=== PATIENT | male | born 1945 | race Caucasian/White ===

== ENCOUNTER 2016-12-23 13:20 | Inpatient (IN) | payer MEDICARE ==
[~2016-12-23] VITALS: Ht 180.3 cm; Wt 98.4 kg
[2016-12-26] MEDS ORDERED: ATEN25TA PO (09:21)
[2016-12-26] MEDS ORDERED: LISI10TA3 PO (09:22)
[2016-12-26] MEDS ORDERED: TAMS5CAP PO (09:23)
[2016-12-26] MEDS ORDERED: NEXI40CA PO (12:15)
[2017-03-14] MEDS ORDERED: ISOS30TA3 PO (12:18)
[2017-03-14] MEDS ORDERED: AMLO5TAB2 PO (12:18)
[2017-03-15] MEDS ORDERED: INSULIN HUMAN REGULAR 1,000 UNITS/10 ML VIAL SQ PRN (07:45)
[2017-03-15] MEDS ORDERED: DEXAMETHASONE SOD PHOS 20 MG/5 ML VIAL IV SCH (07:45)
[2017-03-15] MEDS ORDERED: LACTATED RINGER'S 1000 ML IV PRN (07:45)
[2017-03-15] MEDS ORDERED: TRANEXAMIC ACID INJ 994 MG in SODIUM CHLORIDE 0.9% INJ 100 ML IV SCH ×2 (07:45→14:00)
[2017-03-15] MEDS ORDERED: POVIDONE IODINE 7.5% SCRUB 118 ML BOTTLE TOPICAL SCH (07:45)
[2017-03-15] MEDS ORDERED: CHLORHEXIDINE GLUCONATE 2 % 1 PACK (2 CLOTHS) TOPICAL PRN (07:45)
[2017-03-15] MEDS ORDERED: POVIDONE IODINE 5% (ANTISEPSIS KIT) 4 APPLICATIONS EACH NARE PRN (07:45)
[2017-03-15] MEDS ORDERED: EXPAREL PERI-ARTICULAR INJECTION (TOTAL VOL. 60 ML) P-ARTICULR SCH ×2 (07:45)
[2017-03-15] MEDS ORDERED: METOPROLOL TARTRATE 25 MG TAB PO PRN (07:45)
[2017-03-15] MEDS ORDERED: SODIUM CHLORID 0.9% 500 ML IV PRN (07:45)
[2017-03-15] MEDS ORDERED: ceFAZolin 2 GM PREMIX 50 ML IV SCH (07:45)
[2017-03-15] MEDS ORDERED: VANCOMYCIN 1000 MG/NS 250 ML (for <70 kg) IV SCH ×2 (07:45)
[2017-03-15] MEDS ORDERED: MIDAZOLAM HCL 2 MG/2 ML VIAL ONE (09:41)
[2017-03-15] MEDS ORDERED: FAMOTIDINE 20 MG/2 ML VIAL ONE (09:41)
[2017-03-15] MEDS ORDERED: GENTAMICIN SULFATE 80 MG/2 ML VIAL ONE (11:12)
--- NOTE | 2017-03-15 11:41 | RADRPT ---
EXAM DATE/TIME: 03/15/2017 10:11 [facility] COMPARISON: No previous studies available for comparison. INDICATIONS : Left hip pain, total hip replacement done in operating room. MEDICAL HISTORY : None. SURGICAL HISTORY : None. ENCOUNTER: Initial ACUITY: 1 day PAIN SCORE: Non-responsive. LOCATION: Left hip. FINDINGS: 2 magnified C-arm spot views are centered over the hip and labeled left. A total hip prosthesis is se en in good position. No gross fracture. Soft tissues are unremarkable. CONCLUSION: Hip prosthesis in good position. Abhilash Alvarenga Jr., MD on March 15, 2017 at 11:39 Board Certified Radiologist. This report was verified electronically.
[2017-03-15] MEDS: SODIUM CHLOR 0.9% 1000 ML INJ 1,000 ML IV SCH ×2 (11:43→20:47)
[2017-03-15] MEDS ORDERED: MORPHINE SULFATE 4 MG/ML INJ IV PUSH PRN (11:45)
[2017-03-15] MEDS ORDERED: SODIUM CHLORIDE 0.9% FLUSH 5 ML FLUSH IVF PRN (11:45)
[2017-03-15] MEDS ORDERED: MAGNESIUM HYDROXIDE SUSP 30 ML CUP PO PRN (11:45)
[2017-03-15] MEDS ORDERED: ACETAMINOPHEN/HYDROcodone 325 MG/10 MG TAB PO PRN (11:45)
[2017-03-15] MEDS ORDERED: NALOXONE HCL 0.4 MG/ML AMP IV PRN (11:45)
[2017-03-15] MEDS ORDERED: BISACODYL 10 MG SUPP RECTAL PRN (11:45)
[2017-03-15] MEDS ORDERED: Post-op Orders (for Pharmacy) MISC XX ONE (11:45)
[2017-03-15] MEDS ORDERED: diphenhydrAMINE HCL 50 MG/ML VIAL IV PRN (11:45)
[2017-03-15] MEDS ORDERED: ALUMINUM/MAGNESIUM/SIMETH 30 ML CUP PO PRN (11:45)
[2017-03-15] MEDS ORDERED: ONDANSETRON HCL 4 MG/2 ML VIAL IVP PRN (11:45)
--- NOTE | 2017-03-15 11:46 | PD.OP ---
cc: Leandro Vaughn MD Operative Report Date of Surgery: Mar 15, 2017 Preoperative Diagnosis: Left hip severe osteoarthritis Postoperative Diagnosis: Same Procedure: Left total hip arthroplasty Anesthesia: Gen. Surgeon: Leandro Vaughn Bird Sitter(s): RADHA Jenesn The surgical procedure was assisted by my Advanced Registered Nurse Practitioner. My MIXING AND DISPENSING SUPERVISOR presence was necessary throughout this case for the manipulation and positioning of the surgical extremity. My MIXING AND DISPENSING SUPERVISOR was assisting me throughout the duration of this procedure. The skill set of an Advance Registered Nurse Practitioner was medically necessary to complete this procedure. During the surgical case, the assistant professor surgical technology was working at the back table and the Advance Registered Nurse Practitioner was directly assisting me. Operation and Findings: IMPLANT DESCRIPTION: 1. [place] Gription Cup, acetabular size 52. 2. [place] AltrX polyethylene, neutral. 4. [place] femoral stem size 13, collared, KLA high offset offset. 5. Femoral head/neck metal, 36, 1.5. ESTIMATED BLOOD LOSS: 200 cc. JUSTIFICATION FOR PROCEDURE: The patient has end-stage osteoarthritis to the hip. There is an attached conservative measures pathway form in the chart that describes the nonoperative measures that were undertaken prior to consideration of surgical management. The patient understood the risks and benefits of surgical management. See my office notes for further details. PROCEDURE: The patient was brought back to the operative theatre. Adequate anesthesia was obtained. The patient received intravenous vancomycin and Ancef. The patient was carefully placed on the operative table. The lower extremity was prepped and draped in the usual sterile fashion. Fluoroscopic images were obtained. We made a standard anterior incision over the hip. We dissected through the TFL fascia, exposing the anterior capsule. Arthrotomy was performed in a T-shaped fashion. The capsule was tagged with a #2 FiberWire. End-stage arthritis was identified. Osteotomy was performed through the femoral neck exposing the acetabulum. Remnants of the labrum were resected and osteophytes were removed. We sequentially reamed the acetabulum. We trialed the hip and placed the final cup into position. This was done under fluoroscopic guidance to obtain the appropriate inclination and anteversion. A manhole cover was placed into the acetabular component. We then placed the final polyethylene into position and confirmed that it was well seated. Capsular attachments on the calcar and the inner aspect of the greater trochanter were resected. On the proximal aspect of the femur we used a rongeur , box osteotome, canal finder, sequential broaches and lateralizing rasp. We calcar planed the proximal femur. Then thoroughly irrigated the wound. We trialed the hip with the appropriate size stem. We placed the final stem in to position and trialed again. The hip was stable while it was externally rotated 70 degrees when the leg was lowered to the floor. The final head was applied, and final fluoroscopic images were obtained. The wound was thoroughly irrigated again. Interarticular injection of liposomal bupivacaine was given. The capsule was closed with #2 FiberWire and #1 Vicryl. The deep fascia was closed with a #2 Stratafix, followed by 2-0 Vicryl in the skin and hoa. Postop plan is to weight-bear as tolerated. DVT prophylaxis will be performed with Earl, ENRIQUETA alvarez, early mobilization, and Lovenox followed by aspirin. Leandro Vaughn MD Mar 15, 2017 11:46
[2017-03-15] MEDS ORDERED: ASPI325T PO (11:47)
[2017-03-15] MEDS ORDERED: HYDR-3366 PO (11:47)
[2017-03-15] MEDS ORDERED: ENOX40P SQ (11:47)
[2017-03-15] MEDS ORDERED: ONDANSETRON HCL 4 MG/2 ML VIAL IV PUSH ONE (12:00)
[2017-03-15] MEDS ORDERED: PHENYLEPH/NS 1000 MCG/10 ML SYR IV ONE (12:00)
[2017-03-15] MEDS ORDERED: NEOSTIGMINE 3 MG/3 ML SYR IV ONE (12:00)
[2017-03-15] MEDS ORDERED: ePHEDrine/NS 25 MG/5 ML SYR IV ONE (12:00)
[2017-03-15] MEDS ORDERED: LACTATED RINGER'S 1000 ML INJ 1,000 ML IV ONE (12:00)
[2017-03-15] MEDS ORDERED: PROPOFOL 200 MG/20 ML AMP IV ONE (12:00)
[2017-03-15] MEDS ORDERED: DO NOT ADM ANY ANTICOAGULANT DRUGS PRN (12:07)
--- NOTE | 2017-03-15 13:28 | HHI.FF ---
Face to Face Verification Diagnosis: (1) Osteoarthritis of left hip (2) Status post total hip replacement, left Physical Therapy Gait training, Transfer training, bed to chair Hip: Total hip Left LE Weight Bearing: WB as tolerated Left LE Range of Motion: Active ROM Nursing Nursing: Beth teaching, Dressing changes Dressing Changes: Daily dressing change I have seen patient Wilda Webber on 03/15/17. My clinical findings support the need for the requested home health care services because: Limited ability to care for self High risk of falls I certify that my clinical findings support that this patient is homebound because: Post-op weakness Unsteady gait/balance Timothy Moore Mar 15, 2017 13:28
--- NOTE | 2017-03-15 13:28 | HHI.DCPOC ---
Discharge Care Plan Diagnosis: (1) Osteoarthritis of left hip (2) Status post total hip replacement, left Your Health Problems Are: Difficulty with ADL Goals to Promote Your Health * To prevent worsening of your condition and complications * To maintain your health at the optimal level Directions to Meet Your Goals Take your medications as prescribed Follow your dietary instruction Follow activity as directed Keep your appointments as scheduled Take your immunizations and boosters as scheduled If your symptoms worsen call your PCP, if no PCP go to Urgent Care Center or Emergency Room Smoking is Dangerous to Your Health. Avoid second hand smoke Call the 24-hour hour crisis hotline for domestic abuse at Timothy Moore Mar 15, 2017 13:28
[2017-03-15] MEDS ORDERED: COMMODE 3-IN-11 MIS (13:32)
[2017-03-15] MEDS ORDERED: WALKER WHEELS/F1 MIS (13:32)
--- NOTE | 2017-03-15 13:46 | RADRPT ---
EXAM DATE/TIME: 03/15/2017 12:49 [facility] COMPARISON: No previous studies available for comparison. INDICATIONS : Post-op total left hip arthroplasty. MEDICAL HISTORY : Hypertension. SURGICAL HISTORY : None. ENCOUNTER: Initial ACUITY: 1 day PAIN SCORE: 0/10 LOCATION: Left hip. FINDINGS: 3 views of the hip reveal a total hip prosthesis in good position. No fracture or dislocation is obse rved. A small amount of air is seen within the joint. Soft tissue swelling is noted. Advanced osteoar thritis involving the right hip. CONCLUSION: Hip prosthesis in good position. Advanced osteoarthritis of the right hip. Abhilash Alvarenga Jr., MD on March 15, 2017 at 13:42 Board Certified Radiologist. This report was verified electronically.
[2017-03-15] MEDS ORDERED: *morphine SULFATE 8 MG/ML PERIprocedure ONLY ONE (14:04)
[2017-03-15 16:47] VITALS: BP 148/76; PULSE 59; RESP 18; TEMP 96; O2SAT 97
[2017-03-15 19:06] VITALS: BP 141/65; PULSE 62; RESP 18; TEMP 96.7; O2SAT 96
[2017-03-15] MEDS: SODIUM CHLORIDE 0.9% FLUSH 5 ML FLUSH IVF SCH (20:43)
[2017-03-15] MEDS ORDERED: TAMSULOSIN HCL 0.4 MG CAP PO SCH (21:00)
[2017-03-15] MEDS ORDERED: ZOLPIDEM TARTRATE 5 MG TAB PO PRN (21:00)
[2017-03-15 23:00] VITALS: BP 134/63; PULSE 70; RESP 18; TEMP 97.7; O2SAT 97
--- NOTE | 2017-03-16 00:52 | MB ---
cc: CAROLINE CARNEY MD DATE OF CONSULTATION 03/15/[address] Tariq Vaughn REASON FOR CONSULTATION Assistance with postop medical management. HISTORY OF PRESENT ILLNESS This is a pleasant 71-year-old male with history of hypertension, hyperlipidemia and coronary artery disease. The patient also suffers from BPH. He has longstanding arthritis affecting bilateral knees, left worse than right. This was affecting his activities of daily living. He was progressively getting worse. He was treated conservatively for some time, however, he failed conservative medical management. Imaging studies did reveal severe osteoarthritis. After the failure of conservative management hip replacement surgery was recommended. The patient received preop medical clearance by his recruitment director. In fact, had a stress test that was borderline positive. This was followed by heart catheterization that shows single-vessel disease with good collaterals reportedly. The patient was cleared for surgery. Today he underwent left total hip replacement arthroplasty and tolerated it well. He is currently sitting in chair. His pain is in control at this time, pain medication are helping. Denies nausea, vomiting. Denies chest pain or shortness of breath. PAST MEDICAL HISTORY Significant: 1. Hypertension. 2. Hyperlipidemia. 3. Coronary artery disease. 4. History of gastroesophageal reflux disease 5. BPH. 6. History of sleep apnea. Status post what sounds like UPPP which effectively cured his obstructive sleep apnea. 7. History of urethral stricture requiring surgery twice. 8. History of skin cancer. 9. Osteoarthritis. PAST SURGICAL HISTORY Significant for uvulopalatopharyngoplasty in the early 90s. Cardiac catheterization x2. Bunionectomy. Urethral meatoplasty x2. Skin cancer excision. SOCIAL HISTORY The patient is an ex-smoker, used to smoke one pack per day. He has about 50 pack years of smoking. Stopped smoking about two months ago. Denies drinking or drug abuse. He is , lives with his . He is a retired project facilitator. ALLERGIES NO KNOWN DRUG ALLERGIES BUT HE IS INTOLERANT TO STATINS THAT CAUSE MUSCLE PAIN. FAMILY HISTORY Both of his parents are . Mother in her 80s. She was a smoker and had COPD. Dad in his 70s due to heart attack. REVIEW OF SYSTEMS The patient denies headache, dizziness, loss of consciousness, loss of vision, double vision. Denies sore throat, dysphagia, odynophagia. Denies chest pain, dyspnea, orthopnea, paroxysmal nocturnal dyspnea. Denies nausea, vomiting, abdominal pain. He has good appetite. Denies change in bowel pattern. Denies melena or bright red blood per rectum. He has to get a few times a night to urinate. He also self dilates his urethra with the help of a pin tip on a regular basis. Otherwise the review of systems is negative for 12 systems except for what is mentioned above. PHYSICAL EXAMINATION GENERAL: Middle-aged male sitting in chair, not in any acute distress. Awake, alert. He is oriented x3. VITAL SIGNS: Blood pressure 148/76, pulse of 59, respirations 18, temperature 96.8, O2 sat is 97%. HEENT: Normocephalic, atraumatic. Eye examination extraocular movements are intact. Pupils are round and reactive. No icterus or significant pallor. ENT: No throat congestion. No oral ulcers or thrush. Ears clear. NECK: Supple. No JVD. No lymph node. No bruits. CARDIOVASCULAR: S1-S2 audible. Regular rhythm. No murmur or gallop. RESPIRATORY: Lungs are clear to auscultation. No crackles or rhonchi appreciated. ABDOMEN: The abdomen is soft, protuberant, bulky, nontender. Positive bowel sounds. No hepatosplenomegaly. EXTREMITIES: No pedal edema. Feet are warm to touch. Alisha sign is negative. Left hip dressing intact. NEUROLOGIC: Awake, alert. He is oriented x3. No facial asymmetry. Moving all four extremities. LABORATORY DATA No labs done today. The last CBC was done on December 26, 2016 showed white count 7.6, hemoglobin 13.6, hematocrit 41% and platelet count of 168. BMP the same day showed BUN of 27, creatinine 1.41, glucose 151. Electrolytes are normal. LFTs were normal. ASSESSMENT 1. Osteoarthritis of bilateral hip, left worse than the right status post left total hip replacement arthroplasty, postoperative day #0. 2. Hypertension. 3. Hyperlipidemia. 4. History of intolerance to statin. 5. Coronary artery disease. 6. Possible chronic kidney disease. 7. BPH. 8. History of urethral stricture. 9. History of sleep apnea. 10. Skin cancer. PLAN 1. Postop care as per orthopedic. 2. Antibiotic prophylaxis. The patient getting IV Ancef. 3. DVT prophylaxis subcu Lovenox has been ordered. 4. Wound care. 5. Daily PT. 6. Resume home medications. The patient is on beta-jessica i.e. Atenolol 25 milligrams daily. Imdur 15 milligrams daily. Norvasc 5 milligrams daily and Lisinopril 10 milligrams daily. We will continue those medications. He also takes Protonix 40 milligrams daily, will continue that. 7. Monitor CBC, electrolytes. 8. Consult director of social work for discharge planning. 9. Monitor the patient's urine output. 10. Discussed findings with the patient and his and I have answered all of their questions. Thank you Dr. Vaughn for this consultation. I will follow the patient with you. MD LENARD Armendariz/FEI /5:52 PM /12:21 AM
[2017-03-16 03:00] VITALS: O2SAT 97
[2017-03-16 03:33] VITALS: BP 123/58; PULSE 66; RESP 18; TEMP 97.5; O2SAT 97
[2017-03-16 06:02] LABS: HEMATOCRIT 35.5 % (39.0-51.0); MEAN CELL VOLUME 88.7 FL (80.0-100.0); MEAN CORPUSCULAR HEMOGLOBIN 30.3 PG (27.0-34.0); MEAN CORPUSCULAR HGB CONC 34.2 % (32.0-36.0); PLATELET COUNT 174 TH/MM3 (150-450); RED BLOOD COUNT 4.01 MIL/MM3 (4.50-5.90); RED CELL DISTRIBUTION WIDTH 13.6 % (11.6-17.2); REVIEW FLAG FINAL
[2017-03-16 06:33] LABS: POTASSIUM 4.4 MEQ/L (3.5-5.1)
[2017-03-16] MEDS ORDERED: DEXAMETHASONE SOD PHOS 20 MG/5 ML VIAL IV ONE (07:45)
[2017-03-16 08:00] VITALS: BP 153/83; PULSE 63; RESP 18; TEMP 96.7; O2SAT 97
[2017-03-16] MEDS ORDERED: ISOSORBIDE MONONITRATE 30 MG TAB PO SCH (09:00)
[2017-03-16] MEDS ORDERED: PANTOPRAZOLE SOD 40 MG DELAYED RELEASE TAB PO SCH (09:00)
[2017-03-16] MEDS ORDERED: ATENOLOL 25 MG TAB PO SCH (09:00)
[2017-03-16] MEDS ORDERED: amLODIPine BESYLATE 5 MG TAB PO SCH (09:00)
[2017-03-16] MEDS ORDERED: LISINOPRIL 10 MG TAB PO SCH (09:00)
[2017-03-16] MEDS: SODIUM CHLORIDE 0.9% FLUSH 5 ML FLUSH IVF SCH (09:00)
[2017-03-16] MEDS: ACETAMINOPHEN/HYDROcodone 325 MG/10 MG TAB PO PRN ×2 (09:14→15:06)
[2017-03-16] MEDS: SODIUM CHLOR 0.9% 1000 ML INJ 1,000 ML IV SCH (09:46)
[2017-03-16] MEDS ORDERED: ENOXAPARIN SODIUM 40 MG/0.4 ML SYRINGE SQ SCH (11:00)
[2017-03-16 12:00] VITALS: BP 144/78; PULSE 62; RESP 18; TEMP 98.4; O2SAT 97
--- NOTE | 2017-03-16 12:02 | PD.ORT.PN ---
Subjective Post Op Day #: 1 Subjective Remarks Patient is OOB ambulating around the room. Family at bedside. Patient reports his post op pain is better than prior to his preoperative pain. Objective Vitals Vital Signs Date Time Temp Pulse Resp B/P (MAP) Pulse Ox O2 Delivery O2 Flow Rate FiO2 03/16/17 08:00 96.7 63 18 153/83 (106) 97 03/16/17 03:33 97.5 66 18 123/58 (79) 97 03/16/17 03:00 97 03/15/17 23:00 97.7 70 18 134/63 (86) 97 03/15/17 19:06 96.7 62 18 141/65 (90) 96 03/15/17 16:47 96.0 59 18 148/76 (100) 97 03/15/17 15:50 61 16 150/80 (103) 97 Room Air 03/15/17 15:30 57 16 161/76 (104) 100 Nasal Cannula 2 03/15/17 14:30 57 16 150/75 (100) 99 Nasal Cannula 2 03/15/17 14:15 51 16 155/71 (99) 98 Nasal Cannula 2 03/15/17 14:00 51 16 152/74 (100) 98 Nasal Cannula 2 03/15/17 13:45 57 16 138/72 (94) 100 Nasal Cannula 2 03/15/17 13:30 53 16 148/72 (97) 98 Nasal Cannula 2 03/15/17 13:15 54 16 141/68 (92) 97 Nasal Cannula 2 03/15/17 13:00 58 16 131/62 (85) 96 Nasal Cannula 2 03/15/17 12:45 60 16 146/69 (94) 97 Nasal Cannula 2 03/15/17 12:30 59 16 139/65 (89) 99 Nasal Cannula 2 03/15/17 12:15 57 16 129/62 (84) 98 Nasal Cannula 03/15/17 12:09 97.5 64 16 126/60 (82) 94 Nasal Cannula 3 I/O 03/15/17 03/15/17 03/15/17 03/16/17 03/16/17 03/16/17 07:00 15:00 23:00 07:00 15:00 23:00 Intake Total 1950 ml 1565 ml 460 ml Output Total 125 ml 450 ml 750 ml Balance 1825 ml 1115 ml -290 ml Intake Oral 840 ml 360 ml IV Total 50 ml 725 ml 100 ml Other 1900 ml Output Urine Total 450 ml 750 ml Estimated Blood Loss 125 ml # Voids 1 # Bowel Movements 0 0 Result Diagram: 03/16/1752903/16/17529 Procedures Left PEPE Objective Remarks The patient's dressing is changed with no drainage. Incision is well approximated. No redness or s/s of infection. EHL/TA/G intact. 2+ pedal pulse. No swelling or tenderness to calf. + SILT. Assessment & Plan Ortho Post Op Day #: 1 Problem List: Assessment and Plan POD #1: Left PEPE 1. WBAT LLE 2. Lovenox followed by ASA for DVT prophylaxis 3. Ice to the left hip PRN 4. Stable for discharge home with home health today 5. F/U with Dr. Vaughn or Leander GARCIA as previously scheduled. Timothy Moore Mar 16, 2017 12:02
--- NOTE | 2017-03-16 13:24 | HHI.PR ---
Subjective Subjective Remarks minimal pain ambulating with walker no n/v tolerating diet well no fever no cp no sob at bsd going home today Review of Systems Constitutional Constitutional Remarks 12 point ros completed, negative except as noted above Vitals/Results Vital Signs Vital Signs Date Time Temp Pulse Resp B/P (MAP) Pulse Ox O2 Delivery O2 Flow Rate FiO2 03/16/17 12:00 98.4 62 18 144/78 (100) 97 03/16/17 08:00 96.7 63 18 153/83 (106) 97 03/16/17 03:33 97.5 66 18 123/58 (79) 97 03/16/17 03:00 97 03/15/17 23:00 97.7 70 18 134/63 (86) 97 03/15/17 19:06 96.7 62 18 141/65 (90) 96 03/15/17 16:47 96.0 59 18 148/76 (100) 97 03/15/17 15:50 61 16 150/80 (103) 97 Room Air 03/15/17 15:30 57 16 161/76 (104) 100 Nasal Cannula 2 03/15/17 14:30 57 16 150/75 (100) 99 Nasal Cannula 2 03/15/17 14:15 51 16 155/71 (99) 98 Nasal Cannula 2 03/15/17 14:00 51 16 152/74 (100) 98 Nasal Cannula 2 03/15/17 13:45 57 16 138/72 (94) 100 Nasal Cannula 2 03/15/17 13:30 53 16 148/72 (97) 98 Nasal Cannula 2 CBC/BMP: 03/16/17 0530 03/16/17 0530 Lab Results Laboratory Tests Test 03/16/17 05:30 White Blood Count 15.0 TH/MM3 Red Blood Count 4.01 MIL/MM3 Hemoglobin 12.2 GM/DL Hematocrit 35.5 % Mean Corpuscular Volume 88.7 FL Mean Corpuscular Hemoglobin 30.3 PG Mean Corpuscular Hemoglobin Concent 34.2 % Red Cell Distribution Width 13.6 % Platelet Count 174 TH/MM3 Mean Platelet Volume 7.6 FL Blood Urea Nitrogen 24 MG/DL Creatinine 1.46 MG/DL Random Glucose 122 MG/DL Calcium Level 8.7 MG/DL Sodium Level 139 MEQ/L Potassium Level 4.4 MEQ/L Chloride Level 103 MEQ/L Carbon Dioxide Level 26.0 MEQ/L Anion Gap 10 MEQ/L Estimat Glomerular Filtration Rate 48 ML/MIN Physical Exam General General Appearance: Well Developed, Well Nourished, No Acute Distress, Comfortable Eyes Eye Exam: Pupils Equal, Pupils Reactive Ears & Nose Ears & Nose Exam: Nasal Mucosa [place] Throat Throat Exam: Oral Mucosa [place] & Moist Neck Neck Exam: Neck Supple, Trachea Midline Pulmonary Resp Exam: Clear Bilaterally, No Distress Cardiology CV Exam: Regular, Good Perfusion Gastrointestinal/Abdomen GI Exam: Soft, Non-Tender, Bowel Sounds Present Musculoskeletal MS Exam: Joints Intact MS Remarks left hip dressing d/i Extremeties Extremities Exam: No Edema, Pedal Pulses Palpable Neurologic Neuro Exam: Alert, Awake, Oriented, Speech Clear, Moving All Extremities, No Focal Deficits Psychiatric Psych Exam: Appropriate Responses VTE Prophylaxis VTE Prophylaxis Device: SCDs VTE Prophylaxis Meds: Lovenox Assessment/Plan Assessment/Plan ASSESSMENT 1. Osteoarthritis of bilateral hip, left worse than the right status post left total hip replacement arthroplasty, postoperative day #0. 2. Hypertension. 3. Hyperlipidemia. 4. History of intolerance to statin. 5. Coronary artery disease. 6. Possible chronic kidney disease. 7. BPH. 8. History of urethral stricture. 9. History of sleep apnea. 10. Skin cancer. PLAN 1. Postop care as per orthopedic. 2. Antibiotic prophylaxis. Was on IV Ancef 3. DVT prophylaxis subcu Lovenox has been ordered. 4. Wound care. 5. Daily PT. 6. Continue home medications-- beta-jessica i.e. Atenolol 25 milligrams daily. Imdur 15 milligrams daily. Norvasc 5 milligrams daily and Lisinopril 10 milligrams daily. We will continue those medications. 7. Continue Protonix 40 milligrams daily 7. Monitor CBC, electrolytes-HH stable, WBC elevated, no fever. Poss stress response from surgery 8. Consult clinical social work aide for discharge planning-[facility] arranged 9. Monitor the patient's urine output. Stable for dc D/W RN D/W pt and D/W Dr. Pina This patient was seen by myself and Dr. Pina, this note is written on his behalf. Zeenat Menard Mar 16, 2017 13:24
[2017-03-16] MEDS ORDERED: MULTIVITAMINS/MINERALS THERAPEUTIC TAB PO SCH (21:00)
[2017-03-16] MEDS ORDERED: DOCUSATE SODIUM 100 MG CAP PO SCH (21:00)
--- NOTE | 2017-03-21 16:51 | HHI.DS ---
Discharge Summary Admission Date Mar 15, 2017 at 07:18 Discharge Date: Mar 16, 2017 Admitting Diagnosis left hip OA Status post total hip replacement, left Diagnosis: (1) Osteoarthritis of left hip Diagnosis: Principal ICD Codes: M16.12 - Unilateral primary osteoarthritis, left hip (2) Status post total hip replacement, left Diagnosis: Principal ICD Codes: Z96.642 - Presence of left artificial hip joint Procedures Left PEPE Brief History This is a 71 year old male patient with severe OA of the left hip. PE at Discharge The patient's dressing is changed with no drainage. Incision is well approximated. No redness or s/s of infection. EHL/TA/G intact. 2+ pedal pulse. No swelling or tenderness to calf. + SILT. Hospital Course The patient was admitted to the hospital for a left hip severe OA to have a left PEPE. The patient was taken to surgery and had no complications. The patient is WBAT on the LLE. The patient is on Lovenox followed by ASA for DVT prophylaxis. The patient is on a regular diet. The patient was discharged home with home health. The patient will f/u with Dr. Vaughn or RADHA Gallegos as previously scheduled. Pt Condition on Discharge: Stable Discharge Disposition: Disch w/ Home Health Serv Discharge Instructions Diet Instructions: As Tolerated, No Restrictions Activities You Can Perform: Weight Bearing as [place] Activities to Avoid: Strenuous Activity Follow up Referrals: Orthopedics with Leandro Vaughn MD New Medications: Aspirin (Aspirin) 325 Mg Tab 325 MG PO DAILY for Prevent Blood Clot, #30 TAB 0 Refills Start Aspirin after Lovenox is completed. Commode 3-in-1 (Commode 3-in-1) 1 Mis Mis EA .ROUTE DIRECTED, #1 0 Refills Enoxaparin Inj (Lovenox Inj) 40 Mg/0.4 Ml Syr 40 MG SQ DAILY for Blood Clot Prevention for 10 Days, #10 SYRINGE 0 Refills Start Aspirin after Lovenox is completed. Hydrocodone-Acetaminophen ([place]) 10-325 Mg Tab 1-2 TAB PO Q4H PRN for PAIN, #60 TAB 0 Refills Walker with Front Wheels (Walker with Front Wheels) 1 Mis Mis EA .ROUTE DIRECTED, #1 0 Refills Continued Medications: Amlodipine (Amlodipine) 5 Mg Tab 5 MG PO DAILY for Blood Pressure Management, #30 TAB 0 Refills Atenolol (Atenolol) 25 Mg Tab 25 MG PO DAILY for Blood Pressure Management, #[address] (Nexium) 40 Mg Capdr 40 MG PO DAILY, CAP 0 Refills Isosorbide Mononitrate ER (Isosorbide Mononitrate ER) 30 Mg Crispin 15 MG PO DAILY for Prevent Chest Pain, #30 TAB 0 Refills Lisinopril (Lisinopril) 10 Mg Tab 10 MG PO DAILY, #30 TAB 0 Refills Tamsulosin (Flomax) 0.4 Mg Cap 0.4 MG PO HS for Manage Prostate Problems, #30 CAP 0 Refills Timothy Moore [facility] Mar 21, 2017 16:51
== END 2017-03-16 15:20 | disposition home or self-care (01) | DRG 470 ==
LOC: HSDI 03-15 07:18 → N06A 03-15 16:09
PROVIDERS: ADMIT Orthopaedic Surgery; ATTEND Orthopaedic Surgery
PROC: 0SRB02A Replacement of Left Hip Joint with Metal on Polyethylene Synthetic Substitute, Uncemented, Open Approach (ICD-10-PCS; principal; 2017-03-15 09:46)
DX: M16.0 Bilateral primary osteoarthritis of hip (principal); I10 Essential (primary) hypertension; E78.5 Hyperlipidemia, unspecified; I25.10 Atherosclerotic heart disease of native coronary artery without angina pectoris; N40.0 Benign prostatic hyperplasia without lower urinary tract symptoms; K21.9 Gastro-esophageal reflux disease without esophagitis; N35.9 Urethral stricture, unspecified; Z87.891 Personal history of nicotine dependence
CPT/HCPCS: 73502; 76000; 80048; 85027; 86850; 86900; 86901; 94150; C1776; C9290; J0690; J1100; J1580; J1650; J2250; J2270; J2370; J2405; J2710; J3010; J3370; J7030; J7050; J7120

== ENCOUNTER → 2016-12-26 | Outpatient (CLI) | payer MEDICARE ==
[~2016-12-26] MED LIST: ASPI81 PO; ATEN25TA PO; BYST5TAB2 PO; CO Q100C9 OR; LEXA10TA PO; LISI10TA3 PO; NEXI40CA PO; ROSU10 PO; TAMS5CAP PO
[2016-12-26 09:27] LABS: AUTOMATED NEUTROPHIL # 4.9 TH/MM3 (1.8-7.7); BASOPHIL % 0.5 % (0.0-2.0); EOSINOPHIL # 0.4 TH/MM3 (0-0.4); HEMATOCRIT 41.7 % (39.0-51.0); HEMO FLAGS DIFF FINAL; LYMPHOCYTE # 1.8 TH/MM3 (1.0-4.8); MEAN CELL VOLUME 88.7 FL (80.0-100.0); MEAN CORPUSCULAR HGB CONC 32.6 % (32.0-36.0); MONO % 6.5 % (0.0-8.0); PLATELET COUNT 168 TH/MM3 (150-450); RED CELL DISTRIBUTION WIDTH 13.3 % (11.6-17.2); WHITE BLOOD COUNT 7.6 TH/MM3 (4.0-11.0)
[2016-12-26 09:36] LABS: APTT (PATIENT) 27.2 SEC (24.3-30.1); INTERNATIONAL NORMALIZED RATIO 0.9 RATIO; PROTHROMBIN TIME - PATIENT 10.1 SEC (9.8-11.6)
[2016-12-26 09:43] LABS: BLOOD, URINE NEG (NEG); GLUCOSE,URINE NEG (NEG); KETONE, URINE NEG (NEG); NITRITE,URINE NEG (NEG); PH, URINE 5.5 (5.0-8.5); SQUAMOUS EPITHELIAL CELL URINE 1 /hpf (0-5); URINE COLOR YELLOW (YELLW/STRAW)
[2016-12-26 09:45] LABS: COMMENT (UR) CULT NOT INDICATED; CULTURE IF INDICATED CULT NOT INDICATED
[2016-12-26 09:52] LABS: ANION GAP 8 MEQ/L (5-15); AST (GOT) 17 U/L (15-37); BICARBONATE 27.6 MEQ/L (21.0-32.0); BLOOD UREA NITROGEN 27 MG/DL (7-18); CHLORIDE 104 MEQ/L (98-107); GLOMERULAR FILTRATION RATE 50 ML/MIN (>89); GLUCOSE,FASTING 151 MG/DL (74-99); POTASSIUM 4.3 MEQ/L (3.5-5.1); SODIUM (NA) 140 MEQ/L (136-145)
[2016-12-26 09:54] LABS: ALT (GPT) 32 U/L (12-78)
[2016-12-26 09:57] LABS: ALKALINE PHOSPHATASE 85 U/L (45-117); TOTAL BILIRUBIN ADULT 0.3 MG/DL (0.2-1.0)
[2016-12-26 10:02] LABS: WESTERGREN SEDIMENTATION RATE 21 mm/hr (0-20)
--- NOTE | 2016-12-26 11:56 | RADRPT ---
EXAM DATE/TIME: 12/26/2016 11:25 [facility] COMPARISON: No previous studies available for comparison. INDICATIONS : Evaluate for pneumonia, pneumothorax, or communicable disease. Pre op hip replacement on 01/11/17. MEDICAL HISTORY : None. SURGICAL HISTORY : None. ENCOUNTER: Initial ACUITY: 1 day PAIN SCORE: 0/10 LOCATION: Bilateral chest FINDINGS: PA and lateral views of the chest demonstrate the lungs to be symmetrically aerated without evidence of mass, infiltrate or effusion. The cardiomediastinal contours are unremarkable. Osseous structure s are intact. CONCLUSION: 1. No acute cardiopulmonary disease. Jhon Mata MD on December 26, 2016 at 11:51 Board Certified Radiologist. This report was verified electronically.
--- NOTE | 2016-12-27 14:13 | EKG ---
Date Performed: 12/26/2016 Time Performed: 09:44:50 PTAGE: 71 years EKG: SINUS BRADYCARDIA MILD INTRAVENTRICULAR CONDUCTION DELAY BORDERLINE ECG NO PREVIOUS TRACING DOCTOR: Antonino Feng Interpretating Date/Time 12/27/2016 14:11:50
== END ==
LOC: CPRE 08:56
PROVIDERS: ATTEND Orthopaedic Surgery
DX: Z01.810 Encounter for preprocedural cardiovascular examination (principal); M79.609 Pain in unspecified limb; M16.12 Unilateral primary osteoarthritis, left hip; M25.50 Pain in unspecified joint; Z01.812 Encounter for preprocedural laboratory examination; Z01.818 Encounter for other preprocedural examination
CPT/HCPCS: 36415; 71020; 80053; 81001; 85025; 85610; 85652; 85730; 93005